=== PATIENT | female | born 1975 | race Caucasian/White ===

== ENCOUNTER → 2021-05-12 | Day surgery (SDC) | payer OTHER ==
[~2021-05-12] VITALS: Ht 162.6 cm; Wt 62.1 kg
[~2021-05-12] MED LIST: ASPIRIN EC81 MG PO; ELAVIL25 MG PO; ELIQUIS2.5 MG PO; MAG-OXIDE 400M400 MG PO; MAGNESIUM PO
== END | disposition home or self-care (01) ==
LOC: FAS 09:36
DX: R31.9 Hematuria, unspecified (principal); N39.0 Urinary tract infection, site not specified; R10.2 Pelvic and perineal pain; N64.52 Nipple discharge; B37.3 Candidiasis of vulva and vagina; N63.0 Unspecified lump in unspecified breast; F41.8 Other specified anxiety disorders; G43.909 Migraine, unspecified, not intractable, without status migrainosus; I73.00 Raynaud's syndrome without gangrene; Q87.19 Other congenital malformation syndromes predominantly associated with short stature; M32.9 Systemic lupus erythematosus, unspecified; E55.9 Vitamin D deficiency, unspecified; Z79.899 Other long term (current) drug therapy; Z88.8 Allergy status to other drugs, medicaments and biological substances; Z90.710 Acquired absence of both cervix and uterus; Z20.5 Contact with and (suspected) exposure to viral hepatitis
CPT/HCPCS: J1644; J1885; J2250; J2405; J2704; J7120